=== PATIENT | male | born 1990 | race Caucasian/White ===

== ENCOUNTER 2016-03-04 09:41 | Emergency (ER) | payer OTHER ==
[~2016-03-04 09:41] MED LIST: LORT5TAB PO; TAB-TAB PO
[2016-03-04 09:43] VITALS: BP 142/73; PULSE 58; RESP 14; TEMP 98.2; O2SAT 98
--- NOTE | 2016-03-04 10:11 | PD ---
HPI Chief Complaint: Headache Time Seen by Provider: 10:04 Travel History International Travel<30 days: No Contact w/Intl Traveler<30days: No History of Present Illness HPI This is a 26-year-old male who presents to the emergency department with headaches. He's been having intermittent headaches for the past several months. They occur 1-2 times per month but over the past several days they've been occurring more frequently. They're usually at his right latter-day like a throbbing pain, lasting for an hour or 2 and then subsiding. He denies any associated nausea, vomiting, numbness, weakness, difficulty walking or difficulty talking. He's never seen a neurologist for his headaches. Sometimes he takes ibuprofen for them. He told his parents about his headaches this morning and they became concerned and brought him to the emergency room. PFSH Past Medical History Cancer: No Cardiovascular Problems: No Endocrine: No Genitourinary: No Headaches: Yes Immune Disorder: No Musculoskeletal: No Neurologic: No Psychiatric: No Reproductive: No Respiratory: No Past Surgical History Abdominal Surgery: Yes (appendetomy) Appendectomy: Yes (01/10/09) Other Surgery: Yes Social History Alcohol Use: No Tobacco Use: No Substance Use: No Allergies-Medications (Allergen,Severity, Reaction): Coded Allergies: No Known Allergies (Verified , 08/21/10) Reported Meds & Prescriptions Reported Meds & Active Scripts Active Reported Multivitamin (Multivitamins) 1 Tab Tab 1 Tab PO DAILY Lortab 5/500 (Acetaminophen/Hydrocodone Bitart) 5 Mg/500 Mg Tab 1 Tab PO Q4HPRN FOR PAIN Review of Systems Except as stated in HPI: all other systems reviewed are Neg Physical Exam Narrative GENERAL:Well appearing, no acute distress SKIN: Warm and dry. HEAD: Atraumatic. Normocephalic. EYES: Pupils equal and round. No injection or drainage. ENT: Moist mucous membranes NECK: Trachea midline. CARDIOVASCULAR: Regular rate and rhythm. No murmur appreciated. RESPIRATORY: Clear to auscultation. Breath sounds equal bilaterally. GASTROINTESTINAL: Abdomen soft, non-tender, nondistended. MUSCULOSKELETAL: No obvious deformities. NEUROLOGICAL: Awake and alert. No obvious cranial nerve deficits. No dysarthria or aphasia. No upper or lower extremity drift. No upper extremity ataxia. Visual arana intact. PSYCHIATRIC: Appropriate mood and affect; insight and judgment normal. Data Data Last Documented VS Vital Signs Date Time Temp Pulse Resp B/P Pulse Ox O2 Delivery O2 Flow Rate FiO2 03/04/16 10:06 88 20 98 Room Air 03/04/16 09:43 98.2 142/73 Orders Mri Brain W&W/O Contrast (03/04/16 ) Complete Blood Count With Diff (03/04/16 10:14) Basic Metabolic Panel (Bmp) (03/04/16 10:14) ^ Insert Iv (03/04/16 10:14) Lorazepam Inj (Ativan Inj) (03/04/16 10:15) Sodium Chlor 0.9% 1000 Ml Inj (Ns 1000 M (03/04/16 12:15) Electrocardiogram (03/04/16 ) Labs Laboratory Tests Test 03/04/16 10:22 White Blood Count 4.0 TH/MM3 Red Blood Count 4.96 MIL/MM3 Hemoglobin 16.0 GM/DL Hematocrit 45.3 % Mean Corpuscular Volume 91.3 FL Mean Corpuscular Hemoglobin 32.2 PG Mean Corpuscular Hemoglobin 35.3 % Concent Red Cell Distribution Width 12.2 % Platelet Count 170 TH/MM3 Mean Platelet Volume 8.3 FL Neutrophils (%) (Auto) 49.6 % Lymphocytes (%) (Auto) 35.7 % Monocytes (%) (Auto) 8.1 % Eosinophils (%) (Auto) 5.5 % Basophils (%) (Auto) 1.1 % Neutrophils # (Auto) 2.0 TH/MM3 Lymphocytes # (Auto) 1.4 TH/MM3 Monocytes # (Auto) 0.3 TH/MM3 Eosinophils # (Auto) 0.2 TH/MM3 Basophils # (Auto) 0.0 TH/MM3 CBC Comment DIFF FINAL Differential Comment Sodium Level 140 MEQ/L Potassium Level 4.1 MEQ/L Chloride Level 104 MEQ/L Carbon Dioxide Level 29.0 MEQ/L Anion Gap 7 MEQ/L Blood Urea Nitrogen 20 MG/DL Creatinine 1.08 MG/DL Estimat Glomerular Filtration 83 ML/MIN Rate Random Glucose 77 MG/DL Calcium Level 8.8 MG/DL MDM Medical Decision Making Medical Screen Exam Complete: Yes Emergency Medical Condition: Yes Interpretation(s) Afebrile, slight bradycardia No leukocytosis Electrolytes within normal limits MRI: No acute process EKG: Sinus bradycardia with QTc of 460 Differential Diagnosis Migraine headache, tension headache, cluster headache, brain tumor, subarachnoid hemorrhage Narrative Course This is a 26-year-old male who presents to the emergency department with headache is been intermittent but increasing in frequency over the past week. He has a normal neurologic exam. He was placed on a monitor and an IV was established. Labs were obtained which were reassuring. An MRI was obtained given the chronicity of the patient's headaches. MRI was reassuring with no acute process. Patient had an episode of syncope while transferring from MRI to the bed. I suspect this was a vasovagal episode. He did become bradycardic in the 40s. He is quite athletic and likely has a low heart rate at baseline. EKG demonstrates a QTC of 460. This was discussed with the family and I recommended cardiology follow-up. He was given a liter of IV hydration and feels much better. Patient will be discharged home. Diagnosis Primary Impression: Headache Qualified Code: R51 - Chronic nonintractable headache, unspecified headache type Patient Instructions: General Instructions Additional Instructions: If you develop severe worsening headache, persistent vomiting, numbness, weakness, difficulty walking or difficulty talking return to the emergency department immediately. Take naproxen as needed for headaches. You have a QT interval of 460 on your EKG. This is slightly higher than normal. It would be reasonable to follow up with a tank filler or your primary care physician to repeat an EKG to ensure this is not worsening. Med/Other Pt SpecificInfo: Prescription(s) given Scripts Naproxen 500 Mg [id number] Mg PO BID PRN (PAIN SCALE 4 TO 10) #20 TAB Prov:Candie Elise MD 03/04/16 Disposition: 01 DISCHARGE HOME Condition: Stable Candie Elise MD Mar 04, 2016 10:11
[2016-03-04] MEDS ORDERED: LORazepam 2 MG/ML VIAL IV PUSH ONE (10:15)
[2016-03-04 10:32] LABS: BASOPHIL % 1.1 % (0.0-2.0); EOSINOPHIL # 0.2 TH/MM3 (0-0.4); EOSINOPHIL % 5.5 % (0.0-4.0); HEMATOCRIT 45.3 % (39.0-51.0); HEMO FLAGS DIFF FINAL; LYMPH % 35.7 % (9.0-44.0); LYMPHOCYTE # 1.4 TH/MM3 (1.0-4.8); MEAN CELL VOLUME 91.3 FL (80.0-100.0); MEAN CORPUSCULAR HEMOGLOBIN 32.2 PG (27.0-34.0); MEAN CORPUSCULAR HGB CONC 35.3 % (32.0-36.0); MONO % 8.1 % (0.0-8.0); NEUT % 49.6 % (16.0-70.0); PLATELET COUNT 170 TH/MM3 (150-450); RED BLOOD COUNT 4.96 MIL/MM3 (4.50-5.90); RED CELL DISTRIBUTION WIDTH 12.2 % (11.6-17.2)
[2016-03-04 10:45] LABS: POTASSIUM 4.1 MEQ/L (3.5-5.1)
[2016-03-04] MEDS ORDERED: GADODIAMIDE PF 287 MG/ML 20 ML VIAL (for RAD MRI) IV ONE (11:00)
[2016-03-04] MEDS ORDERED: SODIUM CHLOR 0.9% 1000 ML INJ 1,000 ML IV ONE (12:15)
[2016-03-04] MEDS ORDERED: NAPR500T PO (12:49)
--- NOTE | 2016-03-04 12:57 | RADRPT ---
EXAM DATE/TIME: 03/04/2016 11:30 [facility] COMPARISON: No previous studies available for comparison. INDICATIONS: Cephalgia. CONTRAST: 16 cc Omniscan (gadodiamide) IV MEDICAL HISTORY: Concussion 7 years previous SURGICAL HISTORY: Appendectomy. ENCOUNTER: Initial ACUITY: 1 day PAIN SCORE: 6/10 LOCATION: Cranial TECHNIQUE: Multiplanar, multisequence MRI of the brain was performed both prior to and following the administrat ion of paramagnetic contrast. FINDINGS: MRI of the brain was performed without and with contrast. There is a prominent cisterna magna without evidence for cerebellar compression. Fourth ventricle mi dline. Supratentorial brain appears unremarkable. There is no parenchymal hemorrhage, mass lesion or acute infarction. On the susceptibility weighted images there is no evidence for parenchymal hemorrhage. There is a prominent empty sella without expansion of the sella. Pituitary stalk appears to be displ aced posteriorly. On the post contrast images there is no abnormal contrast enhancement but there would appear to be ve ry little remaining pituitary tissue present. CONCLUSION: I do not see evidence for an acute process as a cause of headaches. Prominent cisterna magna. 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 Findings have been discussed. Earnest Childers MD FACR on March 04, 2016 at 12:27 Board Certified Radiologist. This report was verified electronically.
--- NOTE | 2016-03-04 22:20 | EKG ---
Date Performed: 03/04/2016 Time Performed: 12:21:37 PTAGE: 26 years EKG: SINUS BRADYCARDIA WITH SINUS ARRHYTHMIA PROLONGED QT INTERVAL POSSIBLE PEAKED T WAVES ABNOR MAL ECG NO PREVIOUS TRACING DOCTOR: Theo Chauhan Interpretating Date/Time 03/04/2016 22:19:04
== END 2016-03-04 13:01 | disposition home or self-care (01) ==
LOC: NEPE 09:41
DX: R51 Headache (principal); R94.31 Abnormal electrocardiogram [ECG] [EKG]
CPT/HCPCS: 70553; 80048; 85025; 93005; 99284; A9579